=== PATIENT | male | born 1955 | race Caucasian/White ===

== ENCOUNTER 2016-10-28 11:09 | Emergency (ER) | payer MEDICAID, OTHER ==
[~2016-10-28] VITALS: Ht 167.6 cm; Wt 80.0 kg
[~2016-10-28 11:09] MED LIST: ACET325T33 PO; ONDA4TAB35 PO
[2016-10-28 11:18] VITALS: Ht 167.6 cm; Wt 80.0 kg
[2016-10-28] MEDS ORDERED: MTF1000T PO (15:42)
[2016-10-28] MEDS ORDERED: AMLO-218 PO (15:42)
--- NOTE | 2016-10-28 15:47 | ERD ---
ER Documentation Chief Complaint Date/Time DATE: 10/28/16 TIME: 15:45 Chief Complaint NEEDS LAB WORK , NON COMPLIANT WITH DIABETIC MEDS HPI This is a 61-year-old male who is here for having hyperglycemia this past weekend. He was at a clinic they checked his blood sugar on Friday of 480 9 repeat check on Friday was 340. The patient is having occasional blurry vision and polyuria. No nausea vomiting dizziness weakness. He is also borderline hypertensive. He is completely asymptomatic now. The patient is known about being prediabetic for years and was given metformin but did not take it ROS All systems reviewed and are negative except as per history of present illness. Medications Home Meds Active Scripts Amlodipine Besylate* (Norvasc*) 10 Mg Tablet, 10 MG PO DAILY, #30 TAB Prov:REGINO PHILLIPS DO 10/28/16 Metformin* (Glucophage*) 1,000 Mg Tablet, 1000 MG PO BID, #60 TAB Prov:REGINO PHILLIPS DO 10/28/16 Ondansetron Hcl* (Zofran* ODT) 4 mg -ODT Tab.disper, 4 MG PO Q6 Y for NAUSEA AND /OR VOMITING, #6 TAB Prov:DELVIS MATHIS DO 10/04/15 Acetaminophen* (Tylenol*) 325 Mg Tablet, 1 TAB PO Q6 Y for PAIN AND OR ELEVATED TEMP, #14 TAB Prov:DELFINA,DELVIS DO 10/04/15 PMhx/Soc History of Surgery: No Anesthesia Reaction: No Hx Neurological Disorder: No Hx Respiratory Disorders: No Hx Cardiac Disorders: No Hx Psychiatric Problems: No Hx Miscellaneous Medical Probl: Yes (DM ACCORDING TO PATIENT IT HAS BEEN RESOLVED. ) Hx Alcohol Use: No Hx Substance Use: No Hx Tobacco Use: No FmHx Family History: No coronary disease Physical Exam Vitals Vital Signs Date Time Temp Pulse Resp B/P Pulse Ox O2 Delivery O2 Flow Rate FiO2 10/28/16 11:18 98.1 86 18 150/85 99 Physical Exam Const: [Well-developed, well-nourished] Head: [Atraumatic, normocephalic] Eyes: [Normal Conjunctiva, PERRLA, EOMI, normal sclera, no nystagmus] ENT: [Normal External Ears, Nose and Mouth, moist mucus membranes.] Neck: [Full range of motion. No meningismus, no lymphadenopathy.] Resp: [Clear to auscultation bilaterally, no wheezing, rhonchi, rales] Cardio: [Regular rate and rhythm, no murmurs, S1 S2 present] Abd: [Soft, non tender x 4, non distended. Normal bowel sounds, no guarding or rebound, no pulsitile abdominal masses or bruits] Skin: [No petechiae or rashes, no ecchymosis , no maculopapular rash] Back: [No midline or flank tenderness] Ext: [No cyanosis, or edema, FROM x 4, normal inspection, neurovascularly intact x 4] Neur: [Awake and alert, STR 5/5 x 4, sensation intact x 4, no focal findings, cerebellum intact] Psych: [Normal Mood and Affect] Procedures/MDM Is going to follow-up in outpatient clinic monitor his blood sugar and blood pressure Departure Diagnosis: Primary Impression: Diabetes Diabetes mellitus type: type 2 Diabetes mellitus complication status: with hyperglycemia Diabetes mellitus rn long term care insulin use: unspecified nursing home insulin use status Qualified Code: E11.65 - Type 2 diabetes mellitus with hyperglycemia, unspecified rn long term care insulin use status Additional Impression: Hypertension Hypertension type: essential hypertension Qualified Code: I10 - Essential hypertension Condition: Stable Patient Instructions: Hyperglycemia (High Blood Sugar), High Blood Pressure ( Hypertension) REGINO PHILLIPS DO October 28, 2016 15:47
[2016-10-28 15:58] VITALS: BP 155/90; PULSE 60; RESP 19; TEMP 97.9
== END 2016-10-28 16:58 | disposition home or self-care (01) ==
LOC: E/R 11:09
DX: E11.65 Type 2 diabetes mellitus with hyperglycemia (principal); I10 Essential (primary) hypertension; Z79.84 Long term (current) use of oral hypoglycemic drugs
CPT/HCPCS: 99284